=== PATIENT | male | born 1965 | race Caucasian/White ===

== ENCOUNTER 2018-03-24 08:30 | Day surgery (SDC) | payer BC ==
[~2018-03-24 08:30] MED LIST: ACETAMINOPHEN 1,000 MG/100 ML BTL IV ONE; CEFAZOLIN 2 Gram 2 GM/50 ML BAG IVPB ONE
[2018-03-24] MEDS ORDERED: ROCURONIUM BROMIDE 50MG/5ML VIAL IV ONE (08:31)
[2018-03-24] MEDS ORDERED: ESMOLOL HCL 100 MG/10 ML ML IVP ONE (08:31)
[2018-03-24] MEDS ORDERED: BUPIVACAINE LIPOSOME/PF 133MG/10ML VIAL IV ONE (08:31)
[2018-03-24] MEDS ORDERED: DESFLURANE 240 ML BTL INH ONE (08:31)
[2018-03-24] MEDS ORDERED: BUPIVACAINE 0.5% W/EPI MPF 30 ML VIAL IVP ONE (08:31)
[2018-03-24] MEDS ORDERED: MIDAZOLAM HCL 2MG/2ML VIAL IV ONE (08:31)
[2018-03-24] MEDS ORDERED: BUPIVACAINE 0.5% (5MG/ML) PF 30ML VIAL IVP ONE (08:31)
[2018-03-24] MEDS ORDERED: NEOSTIGMINE 1 MG/1 ML,10ML VIAL IV ONE (08:31)
[2018-03-24] MEDS ORDERED: FENTANYL PF 100MCG/2ML VIAL IV ONE (08:31)
[2018-03-24] MEDS ORDERED: MORPHINE SULFATE PF 10MG/10ML VIAL IV ONE (08:31)
[2018-03-24] MEDS ORDERED: ONDANSETRON HCL IV 4 MG/2 ML VIAL IVP ONE (08:31)
[2018-03-24] MEDS ORDERED: LABETALOL HCL 5MG/ML, 20ML VIAL IV ONE (08:31)
[2018-03-24] MEDS ORDERED: LIDOCAINE 2% MDV (20MG/ML) 20ML VIAL IV ONE (08:31)
[2018-03-24] MEDS ORDERED: DEXAMETHASONE 4 MG/ML 1ML VIAL IVP ONE ×2 (08:31)
[2018-03-24] MEDS ORDERED: GLYCOPYRROLATE 0.2 MG/ML ML IV ONE (08:31)
[2018-03-24] MEDS ORDERED: SUCCINYLCHOLINE 20 MG/ML 10ML IVP ONE (08:31)
[2018-03-24] MEDS ORDERED: PROPOFOL 10 MG/ML VIAL IV ONE (08:31)
[2018-03-24] MEDS ORDERED: METHYLPREDNISOLONE 40MG/VIAL IM ONE (08:31)
[2018-03-24] MEDS ORDERED: PHENYLEPHRINE HCL 10 MG/ML VIAL IVP ONE (08:31)
--- NOTE | 2018-03-25 10:20 | Operative Note ---
DATE OF SURGERY: 03/24/2018 PREOPERATIVE DIAGNOSIS: Right shoulder impingement with arthrosis. POSTOPERATIVE DIAGNOSES: 1. 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 2. Diffuse synovitis and a complex glenohumeral labral tear posteriorly. 3. Arthrosis right distal clavicle. OPERATION: 1. Right shoulder arthroscopy with intraarticular debridement and synovectomy. 2. Right shoulder open acromioplasty, CA ligament resection, and subacromial bursectomy. 3. Right shoulder distal clavicle resection. Staff Surgeon: Seferino Jj MD Anesthesia: General. Preparation: Chloraprep. Individual Considerations: None. PROCEDURE: The patient was taken to the operating room, placed supine on the operating room table. He had a successful induction with general anesthetic. He was then placed in a semi-seated beach chair position. His right arm and shoulder were prepped and draped in the usual fashion. The patient had a posterior portal identified for arthroscopy. Skin was infiltrated with 0.5% Marcaine with epinephrine prior. An 18-gauge spinal needle was placed in the joint, and the joint was inflated with normal saline with a 60-mL syringe. A stab wound was made, and a blunt-tipped trocar for the scope was placed in the joint. The joint was inflated with normal saline. An anterior accessory portal was then made just inferior to the intact long head of the biceps tendon in a retrograde fashion with a Wissinger amairani, and the joint was irrigated out. The patient had diffuse synovitis grade 3 changes at the humeral head and glenoid, especially humeral head with peeling cartilage. There was a complex labral tear primarily posteriorly. Long head was relatively intact. Rotator cuff looked contused. The subscap tendon was normal. There were cartilaginous loose bodies. The shaver was introduced and basically the articular surfaces were debrided. Synovectomy was performed completely. Labral tear was debrided and the cartilaginous loose bodies were irrigated out. After irrigation, portals were closed with bruce. The patient had an anterior approach to the subacromial space and distal clavicle. Skin was again infiltrated with 0.5% Marcaine with epinephrine prior. Sharp dissection carried down through skin and subcutaneous tissues. Small veins were coagulated with a Bovie. An anterior deltoid interval was identified. Care was taken not to split the deltoid more than about 4 cm distal to the anterior tip of the acromion to prevent injury to the axillary nerve. Once in the subacromial space, he had a very large anterior spur, very tight space and degenerative changes at the distal clavicle. The deltoid was then taken subperiosteally off the anterior aspect of the acromion, over the top of the intact CA ligament, and off the anterior aspect of the highly degenerated distal clavicle. CA ligament was resected with a Bovie. Distal clavicle was resected with an oscillating saw taking about 1 cm. The patient had an anterior acromioplasty taking mainly the downsloping acromion which was about a centimeter, tapering towards posteromedially to include the spurs at the AC joint. I then did a complete bursectomy. I now had a good look at the rotator cuff. It looked contused but nothing to repair. After irrigation, I placed a 22-gauge needle through the skin and into the shoulder joint itself. I then reattached the deltoid to the remaining acromion with multiple interrupted #2 Vicryl going directly through the bony acromion. The periosteal cuff of the distal clavicle was closed with a running #2 Vicryl. Anterior deltoid interval was closed with running 1 Vicryl. Subcu was closed in layers and 2-0 plus Vicryl. Skin was closed with bruce. I then placed an 18-gauge spinal into the subacromial space. I mixed 80 mg of Depo-Medrol with 5 mL of saline and injected into the joint itself with a 22-gauge needle. I then added 20 mL of 0.5% Marcaine with epinephrine along with 10 mL of morphine into the subacromial space through the 18-gauge needle. A sterile bulky compressive dressing and sling applied. The patient tolerated the procedure well. Needle and sponge counts were correct. Estimated blood loss was minimal. He was taken back to recovery in good condition. There were no complications. BRENNA
== END 2018-03-24 13:48 | disposition home or self-care (01) ==
LOC: SUR 08:30
PROVIDERS: ATTEND Orthopaedic Surgery
DX: S43.431A Superior glenoid labrum lesion of right shoulder, initial encounter (principal); M19.011 Primary osteoarthritis, right shoulder; M65.9 Synovitis and tenosynovitis, unspecified; M94.211 Chondromalacia, right shoulder; I10 Essential (primary) hypertension; G47.33 Obstructive sleep apnea (adult) (pediatric); E66.9 Obesity, unspecified
CPT/HCPCS: 29824; 29826; 29821; 01630; 64415; J2405; J3010; J0690; C9290; 76942; J0330; J1030; J2370; J2710